=== PATIENT | female | born 1995 ===

== ENCOUNTER 2025-05-29 16:42 | Inpatient (IN) | payer MEDICAID ==
[~2025-05-29] VITALS: Ht 165.1 cm; Wt 59.0 kg
[2025-05-29] MEDS ORDERED: diphenhydrAMINE 50 MG/1 ML VIAL ONE (17:22)
[2025-05-29] MEDS ORDERED: METOCLOPRAMIDE HCL 10 MG/2 ML VIAL ONE ×2 (17:22→23:56)
[2025-05-29] MEDS: diphenhydrAMINE 50 MG/1 ML VIAL IV ONE (17:30)
[2025-05-29] MEDS: IV NORMAL SALINE 1000 ML BAG IV ONE (17:30)
[2025-05-29] MEDS: METOCLOPRAMIDE HCL 10 MG/2 ML VIAL IV ONE (17:30)
[2025-05-29 17:44] LABS: PLATELET COUNT (AUTO) 293 K/uL (179-408); RED BLOOD CELL COUNT(AUTO) 4.15 MIL/uL (3.63-4.92); RED CELL DISTRIBUTION WIDTH 11.2 % (12.3-17.7); WHITE BLOOD COUNT (AUTO) 12.4 K/uL (3.8-11.8)
[2025-05-29 18:06] LABS: ASPARTATE AMINOTRANSFERASE 20 U/L (15-37); CREATININE 0.5 mg/dL (0.6-1.3); SODIUM SERUM 141 mmol/L (136-145); TOTAL PROTEIN, SERUM 7.8 g/dL (6.4-8.2); UREA NITROGEN, BLOOD 11 mg/dL (7-18)
[2025-05-29 18:15] LABS: PREGNANCY TEST SERUM QUAN < 1 miul/L (0-6)
[2025-05-29 18:25] LABS: *BILIRUBIN,URIN NEGATIVE (NEGATIVE); *BLOOD, URINE 3+ (NEGATIVE); *KETONES,URINE 2+ (NEGATIVE); *PROTEIN,URINE 2+ (NEGATIVE); *UROBILINOGEN,URINE 0.2 E.U./dl (NORMAL); LEUKOCYTE ESTERASE ,URINE NEGATIVE (NEGATIVE); NITRITE, URINE NEGATIVE (NEGATIVE); UGLUCOSE NEGATIVE (NEGATIVE)
[2025-05-29 18:28] LABS: *CLARITY,URINE HAZY (CLEAR); *COLOR,URINE AMBER (YELLOW)
[2025-05-29 18:29] LABS: *URINE HCG, QUAL NEGATIVE (NEGATIVE)
[2025-05-29 19:10] LABS: *AMPHETAMINE, URINE NEGATIVE (NEGATIVE); *BARBITURATE, URINE NEGATIVE (NEGATIVE); *BENZODIAZEPINE, URINE NEGATIVE (NEGATIVE); *CANNABINOID, URINE NEGATIVE (NEGATIVE); *COCCAINE, URINE NEGATIVE (NEGATIVE); *OPIATE, URINE POSITIVE (NEGATIVE); *PHENCYCLIDINE SCREEN,URINE NEGATIVE (NEGATIVE); FENTANYL, URINE NEGATIVE (NEGATIVE)
[2025-05-29] MEDS ORDERED: MORPHINE SULFATE 4 MG/1 ML DISP.SYRIN ONE (20:02)
[2025-05-29] MEDS ORDERED: MORPHINE SULFATE 2 MG/1 ML DISP.SYRIN ONE (20:02)
[2025-05-29] MEDS: MORPHINE SULFATE 4 MG/1 ML DISP.SYRIN IV ONE (20:04)
[2025-05-29] MEDS ORDERED: PIPERACILLIN/TAZOBACTAM/D5W 50 ML IV ONE (22:40)
[2025-05-29] MEDS: IV NS 1000 ML 1,000 ML IV ONE (23:02)
[2025-05-29] MEDS: PIPERACILLIN SODIUM/TAZOBACTAM 3.375 G in IV DEXTROSE 5% 50 ML IV ONE (23:02)
[2025-05-29] MEDS ORDERED: MAGNESIUM HYDROXIDE 30 ML LIQUID UDC PO PRN (23:15)
[2025-05-29] MEDS ORDERED: ACETAMINOPHEN 325 MG TABLET PO PRN (23:15)
[2025-05-29] MEDS ORDERED: REMEDY ESSENTIAL ZINC PASTE 113 GM TP PRN (23:15)
[2025-05-29] MEDS ORDERED: ONDANSETRON 4 MG/2 ML VIAL ONE (23:55)
[2025-05-29] MEDS: ONDANSETRON 4 MG/2 ML VIAL IV ONE (23:56)
[2025-05-29] MEDS: METOCLOPRAMIDE HCL 10 MG/2 ML VIAL IV SCH (23:56)
[2025-05-30 01:45] VITALS: BP 93/65
[2025-05-30] MEDS: IV NS 1000 ML 1,000 ML IV PRN (03:09)
[2025-05-30] MEDS: MORPHINE SULFATE 2 MG/1 ML DISP.SYRIN IV PRN ×2 (04:06→11:00)
[2025-05-30 04:13] VITALS: BP 112/62; TEMP 97.9; O2SAT 98
[2025-05-30] MEDS ORDERED: PIPERACILLIN SODIUM/TAZOBACTAM 3.375 G in IV DEXTROSE 5% 50 ML IV SCH (06:00)
[2025-05-30] MEDS: METOCLOPRAMIDE HCL 10 MG/2 ML VIAL IV SCH (09:55)
[2025-05-30] MEDS: PANTOPRAZOLE SODIUM 40 MG VIAL IV SCH (09:55)
[2025-05-30] MEDS: PIPERACILLIN SODIUM/TAZOBACTAM 3.375 G in IV DEXTROSE 5% 100 ML IV SCH (10:02)
[2025-05-30 11:37] VITALS: BP 112/63; TEMP 98.3; O2SAT 100
[2025-05-30 15:40] VITALS: BP 111/64; TEMP 98.6; O2SAT 100
[2025-05-30] MEDS: IV NS 1000 ML 1,000 ML IV SCH (16:14)
[2025-05-30 19:44] VITALS: BP 116/72; TEMP 99.1; O2SAT 99
[2025-05-30] MEDS: MORPHINE SULFATE 4 MG/1 ML DISP.SYRIN IV PRN (20:28)
[2025-05-30] MEDS: diphenhydrAMINE 50 MG/1 ML VIAL IV ONE (21:58)
[2025-05-30] MEDS: METOCLOPRAMIDE HCL 10 MG/2 ML VIAL IV ONE (21:59)
[2025-05-31] MEDS: ONDANSETRON 4 MG/2 ML VIAL IV PRN ×2 (00:45→13:45)
[2025-05-31] MEDS: diphenhydrAMINE 50 MG/1 ML VIAL IV ONE (04:22)
[2025-05-31] MEDS: FAMOTIDINE. 20 MG/2 ML VIAL IV ONE (04:22)
[2025-05-31 06:43] VITALS: BP 123/75; TEMP 98.2; O2SAT 100
[2025-05-31 07:54] LABS: PLATELET COUNT (AUTO) 207 K/uL (179-408); RED BLOOD CELL COUNT(AUTO) 3.31 MIL/uL (3.63-4.92); RED CELL DISTRIBUTION WIDTH 11.3 % (12.3-17.7); WHITE BLOOD COUNT (AUTO) 6.6 K/uL (3.8-11.8)
[2025-05-31] MEDS: diphenhydrAMINE 50 MG/1 ML VIAL IV SCH (09:26)
[2025-05-31] MEDS: METOCLOPRAMIDE HCL 10 MG/2 ML VIAL IV SCH (09:27)
[2025-05-31] MEDS: FAMOTIDINE. 20 MG/2 ML VIAL IV SCH (09:27)
[2025-05-31 11:34] VITALS: BP 114/70; TEMP 98.4; O2SAT 100
[2025-05-31] MEDS: MORPHINE SULFATE 4 MG/1 ML DISP.SYRIN IV PRN (12:52)
[2025-05-31] MEDS: KETOROLAC TROMETHAMINE 15 MG INJ IM ONE (15:08)
[2025-05-31 16:00] VITALS: BP 136/79; TEMP 98.6; O2SAT 99
[2025-05-31 19:54] VITALS: BP 143/82; TEMP 98.2; O2SAT 100
[2025-06-01 05:47] VITALS: BP 142/84; TEMP 98.6; O2SAT 97
[2025-06-01] MEDS: PANTOPRAZOLE SODIUM 40 MG TABLET.DR PO SCH (09:11)
[2025-06-01] MEDS ORDERED: CIPR-262 PO (10:33)
[2025-06-01] MEDS ORDERED: HYDR-3972 PO (10:33)
[2025-06-01] MEDS ORDERED: METR500T PO (10:33)
[2025-06-01 10:52] VITALS: BP 128/84; TEMP 98.4; O2SAT 98
[2025-06-03 00:07] LABS: *CHLAMYDIA NAA Negative (Negative); *GC NAA Negative (Negative); *TRIC.VAG. NAA Negative (Negative)
== END 2025-06-01 12:55 | disposition home or self-care (01) | DRG 720 ==
LOC: ER 16:42 → MEDSURG3 05-30 02:24
PROVIDERS: ADMIT Nurse Practitioner Acute Care; ATTEND Internal Medicine
PROC: 05HB33Z Insertion of Infusion Device into Right Basilic Vein, Percutaneous Approach (ICD-10-PCS; principal; 2025-05-30)
DX: A41.9 Sepsis, unspecified organism (principal); A09 Infectious gastroenteritis and colitis, unspecified; E87.6 Hypokalemia; N83.201 Unspecified ovarian cyst, right side; K57.30 Diverticulosis of large intestine without perforation or abscess without bleeding; K44.9 Diaphragmatic hernia without obstruction or gangrene; N94.6 Dysmenorrhea, unspecified; R19.8 Other specified symptoms and signs involving the digestive system and abdomen
CPT/HCPCS: 36415; 71045; 76856; 83690; 84484; 84703; 85025; 85730; 87491; G0378; J1200; J1308; J1885; J2270; J2405; J2470; J2543; J2765; J7040

== ENCOUNTER 2025-06-01 23:26 | Inpatient (IN) | payer MEDICAID ==
[~2025-06-01] VITALS: Ht 165.1 cm; Wt 59.0 kg
[~2025-06-01 23:26] MED LIST: CIPR-262 PO; HYDR-3972 PO; METR500T PO
[2025-06-01] MEDS ORDERED: ONDANSETRON 4 MG/2 ML VIAL ONE (23:53)
[2025-06-02] MEDS: IV NS 1000 ML 1,000 ML IV ONE ×2 (00:02→02:35)
[2025-06-02] MEDS: ONDANSETRON 4 MG/2 ML VIAL IV ONE ×2 (00:02→05:04)
[2025-06-02] MEDS ORDERED: KETOROLAC TROMETHAMINE 15 MG INJ ONE (00:03)
[2025-06-02] MEDS: KETOROLAC TROMETHAMINE 15 MG INJ IVP ONE (00:07)
[2025-06-02] MEDS ORDERED: MORPHINE SULFATE 4 MG/1 ML DISP.SYRIN ONE (01:07)
[2025-06-02] MEDS ORDERED: FAMOTIDINE. 20 MG/2 ML VIAL IV ONE (01:07)
[2025-06-02 01:10] LABS: PLATELET COUNT (AUTO) 206 K/uL (179-408); RED BLOOD CELL COUNT(AUTO) 3.32 MIL/uL (3.63-4.92); RED CELL DISTRIBUTION WIDTH 10.9 % (12.3-17.7); WHITE BLOOD COUNT (AUTO) 8.0 K/uL (3.8-11.8)
[2025-06-02] MEDS: FAMOTIDINE. 20 MG/2 ML VIAL IV ONE (01:15)
[2025-06-02] MEDS: MORPHINE SULFATE 4 MG/1 ML DISP.SYRIN IV ONE (01:16)
[2025-06-02 01:17] LABS: CREATININE 0.3 mg/dL (0.6-1.3); SODIUM SERUM 141 mmol/L (136-145); UREA NITROGEN, BLOOD 5 mg/dL (7-18)
[2025-06-02 01:23] LABS: ASPARTATE AMINOTRANSFERASE 16 U/L (15-37); TOTAL PROTEIN, SERUM 6.0 g/dL (6.4-8.2)
[2025-06-02 01:44] LABS: *BILIRUBIN,URIN NEGATIVE (NEGATIVE); *BLOOD, URINE 2+ (NEGATIVE); *CLARITY,URINE CLEAR (CLEAR); *COLOR,URINE YELLOW (YELLOW); *KETONES,URINE 1+ (NEGATIVE); *PROTEIN,URINE NEGATIVE (NEGATIVE); *URINE HCG, QUAL NEGATIVE (NEGATIVE); *UROBILINOGEN,URINE 0.2 E.U./dl (NORMAL); LEUKOCYTE ESTERASE ,URINE NEGATIVE (NEGATIVE); NITRITE, URINE NEGATIVE (NEGATIVE); UGLUCOSE NEGATIVE (NEGATIVE)
[2025-06-02 01:45] LABS: SQUAMOUS EPITHELIAL CELL,UR FEW /HPF (NONE SEEN)
[2025-06-02] MEDS ORDERED: METOCLOPRAMIDE HCL 10 MG/2 ML VIAL ONE (02:25)
[2025-06-02] MEDS: METOCLOPRAMIDE HCL 10 MG/2 ML VIAL IV ONE (02:35)
[2025-06-02] MEDS ORDERED: ONDANSETRON 4 MG/2 ML VIAL ONE (04:53)
[2025-06-02] MEDS ORDERED: POTASSIUM CHLORIDE 200 ML ONE (04:53)
[2025-06-02] MEDS: POTASSIUM CHLORIDE 50 ML IV SCH (05:00)
[2025-06-02] MEDS ORDERED: MAGNESIUM HYDROXIDE 30 ML LIQUID UDC PO PRN (05:45)
[2025-06-02] MEDS ORDERED: ONDANSETRON 4 MG/2 ML VIAL IV PRN (05:45)
[2025-06-02 06:02] VITALS: BP 118/73
[2025-06-02] MEDS: PANTOPRAZOLE SODIUM 40 MG VIAL IV SCH (08:53)
[2025-06-02] MEDS: MORPHINE SULFATE 2 MG/1 ML DISP.SYRIN IV PRN (08:54)
[2025-06-02] MEDS: IV NS 1000 ML 1,000 ML IV PRN (08:54)
[2025-06-02 11:03] VITALS: BP 129/79; TEMP 98.6; O2SAT 98
[2025-06-02] MEDS: CIPROFLOXACIN IV 400 MG in PREMIXED 1 EACH IV SCH (13:54)
[2025-06-02] MEDS: IV D5 1/2 NS 1000 ML 1,000 ML IV SCH (13:57)
[2025-06-02] MEDS: METRONIDAZOLE 500 MG/NS 100ML 500 MG in PREMIXED 1 EACH IV SCH (14:04)
[2025-06-02 14:59] VITALS: BP 140/87; TEMP 98.3; O2SAT 97
[2025-06-02 19:00] VITALS: BP 106/67; TEMP 98.3; O2SAT 99
[2025-06-03] MEDS: LORAZEPAM 0.5 MG TABLET PO ONE ×2 (01:19→23:29)
[2025-06-03 05:00] VITALS: BP 121/79; TEMP 98; O2SAT 97
[2025-06-03 07:03] LABS: PLATELET COUNT (AUTO) 209 K/uL (179-408); RED BLOOD CELL COUNT(AUTO) 3.27 MIL/uL (3.63-4.92); RED CELL DISTRIBUTION WIDTH 11.0 % (12.3-17.7); WHITE BLOOD COUNT (AUTO) 7.1 K/uL (3.8-11.8)
[2025-06-03 08:17] LABS: CREATININE 0.4 mg/dL (0.6-1.3); SODIUM SERUM 147 mmol/L (136-145); UREA NITROGEN, BLOOD 2 mg/dL (7-18)
[2025-06-03] MEDS: MAGNESIUM SULFATE/D5W 100 ML IV SCH (09:52)
[2025-06-03] MEDS: POTASSIUM CHLORIDE 20 MEQ POWDER PACKET PO ONE ×2 (11:00→14:04)
[2025-06-03 11:37] VITALS: BP 123/79; TEMP 97.9; O2SAT 97
[2025-06-03] MEDS: ACETAMINOPHEN 325 MG TABLET PO PRN (13:06)
[2025-06-03 15:56] VITALS: BP 114/79; TEMP 98.2; O2SAT 99
[2025-06-03 19:45] VITALS: BP 106/66; TEMP 98.6; O2SAT 97
[2025-06-04 06:44] LABS: PLATELET COUNT (AUTO) 222 K/uL (179-408); RED BLOOD CELL COUNT(AUTO) 3.43 MIL/uL (3.63-4.92); RED CELL DISTRIBUTION WIDTH 11.1 % (12.3-17.7); WHITE BLOOD COUNT (AUTO) 6.2 K/uL (3.8-11.8)
[2025-06-04 07:03] LABS: CREATININE 0.4 mg/dL (0.6-1.3); SODIUM SERUM 143 mmol/L (136-145); UREA NITROGEN, BLOOD 3 mg/dL (7-18)
[2025-06-04] MEDS ORDERED: POTASSIUM CHLORIDE 20 MEQ TAB.PRT.SR PO ONE (10:15)
[2025-06-04] MEDS ORDERED: KETOROLAC TROMETHAMINE 15 MG INJ IVP PRN (10:15)
[2025-06-04] MEDS ORDERED: POTASSIUM CHLORIDE 20 MEQ POWDER PACKET PO ONE (10:30)
[2025-06-04] MEDS: POTASSIUM CHLORIDE 20 MEQ POWDER PACKET PO ONE (10:56)
[2025-06-04 11:50] VITALS: BP 119/74; TEMP 98.2; O2SAT 98
[2025-06-04] MEDS: KETOROLAC TROMETHAMINE 30 MG INJ IVP PRN (13:36)
[2025-06-04 14:49] VITALS: TEMP 98.2
[2025-06-04] MEDS ORDERED: ENSURE ENLIVE (VAN) 240 ML LIQUID PO SCH (17:00)
== END 2025-06-04 15:08 | disposition still patient (30) | DRG 243 ==
LOC: ER 23:32 → MEDSURG3 06-02 04:48
PROVIDERS: ADMIT Registered Nurse Psychiatric/Mental Health; ATTEND Student in an Organized Health Care Education/Training Program
PROC: 05HC33Z Insertion of Infusion Device into Left Basilic Vein, Percutaneous Approach (ICD-10-PCS; principal; 2025-06-02)
DX: K20.90 Esophagitis, unspecified without bleeding (principal); E44.1 Mild protein-calorie malnutrition; E87.0 Hyperosmolality and hypernatremia; E83.42 Hypomagnesemia; E87.6 Hypokalemia; K44.9 Diaphragmatic hernia without obstruction or gangrene; K57.30 Diverticulosis of large intestine without perforation or abscess without bleeding; N83.202 Unspecified ovarian cyst, left side; D35.02 Benign neoplasm of left adrenal gland; K52.9 Noninfective gastroenteritis and colitis, unspecified; Z68.21 Body mass index [BMI] 21.0-21.9, adult
CPT/HCPCS: 36415; 83690; 83735; 84100; 84703; 85025; 86625; 87046; A4606; A4663; G0378; J0744; J1308; J1885; J2270; J2405; J2470; J2765; J3475; J3480; J3490; J7040